=== PATIENT | female | born 1975 | race Two or more races ===

== ENCOUNTER 2025-03-27 06:25 | Day surgery (SDC) | payer BC, OTHER ==
[2025-03-27] MEDS ORDERED: ROCURONIUM BROMIDE 50 MG/5 ML SYRINGE ONE (13:54)
[2025-03-27] MEDS ORDERED: LIDOCAINE HCL/PF 2% SDV 5ML VIAL ONE (13:54)
[2025-03-27] MEDS ORDERED: MIDAZOLAM HCL 2 MG/2 ML SINGLE DOSE VIAL ONE (13:54)
[2025-03-27] MEDS ORDERED: SUCCINYLCHOLINE CHLORIDE 200 MG/10 ML SYRINGE ONE (13:54)
[2025-03-27] MEDS ORDERED: PROPOFOL 20 ML ONE (13:54)
[2025-03-27] MEDS ORDERED: METHYLENE BLUE 50 MG/10 ML AMPUL ONE (14:39)
[2025-03-27] MEDS ORDERED: DEXAMETHASONE SOD PHOSPHATE 4 MG/1 ML VIAL ONE (15:11)
[2025-03-27] MEDS: TRANEXAMIC ACID 1000 MG/10 ML VIAL IVPUSH ONE ×2 (15:15→17:46)
[2025-03-27] MEDS ORDERED: NEOSTIGMINE METHYLSULFATE 0.5 MG/1 ML - 10 ML MDV ONE (17:01)
[2025-03-27] MEDS ORDERED: ACETAMINOPHEN 325 MG TABLET (FP) PO PRN (17:36)
[2025-03-27] MEDS ORDERED: DOCUSATE SODIUM 100 MG CAPSULE (FP) PO PRN (17:36)
[2025-03-27] MEDS ORDERED: IBUPROFEN 600 MG TABLET (FP) PO PRN (17:36)
[2025-03-27] MEDS ORDERED: ONDANSETRON 4 MG/2 ML VIAL IVPUSH PRN ×2 (17:38)
[2025-03-27] MEDS: CEFAZOLIN 2 GM in DEXTROSE 5%-WATER - 100 ML IVPB ONE (17:46)
[2025-03-27] MEDS: LACTATED RINGERS SOLUTION 1,000 ML IV SCH (17:47)
[2025-03-28 07:31] LABS: MCHC 31.1 g/dl (32.2-35.5); MEAN CELL VOLUME 87.0 fl (79.4-94.8); MEAN PLT VOLUME 11.0 fl (9.4-12.3); RDW 13.1 % (12.2-17.1)
[2025-03-28 08:40] LABS: CO2 27.0 mmol/L (21-32); GLUCOSE,RANDOM 94.0 mg/dL (74-106)
[2025-03-28 08:43] LABS: CREATININE 0.7 mg/dL (0.55-1.3); SGOT/AST 19.0 U/L (15-37); SGPT/ALT 16.0 U/L (13-61)
[2025-03-28 08:45] LABS: TOT PROT 6.0 g/dl (6.4-8.2)
[2025-03-28 08:46] VITALS: RESP 16
[2025-03-28 08:46] LABS: ALK PHOS 47.0 U/L (45-117)
[2025-03-28 12:15] VITALS: BP 120/71; PULSE 60; TEMP 97.9
== END 2025-03-28 13:15 | disposition home or self-care (01) ==
LOC: JASUSAT 06:25 → EDSTATUS 11:45 → J3W 19:58 → JASUSAT 03-28 13:15
PROVIDERS: ATTEND Obstetrics & Gynecology
PROC: 0UT9FZZ Resection of Uterus, Via Natural or Artificial Opening With Percutaneous Endoscopic Assistance (ICD-10-PCS; principal; 2025-03-27 12:00)
PROC: 0UT7FZZ Resection of Bilateral Fallopian Tubes, Via Natural or Artificial Opening With Percutaneous Endoscopic Assistance (ICD-10-PCS; 2025-03-27 12:00)
DX: N87.9 Dysplasia of cervix uteri, unspecified (principal); Z87.410 Personal history of cervical dysplasia
CPT/HCPCS: 36415; 80053; 81025; 85027; 88307-TC; 94760; Q9968